=== PATIENT | female | born 1980 | race Caucasian/White ===

== ENCOUNTER 2022-10-14 08:18 | Emergency (ER) | payer OTHER ==
[~2022-10-14] VITALS: Ht 154.9 cm; Wt 63.5 kg
--- NOTE | 2022-10-14 08:30 | NUR ---
Patient ambulated into room #4A with c/o right neck and arm pain. Informed of plan of care, MD at bedside for exam. No s/s of any distress noted at this time, will continue to monitor.
--- NOTE | 2022-10-14 08:43 | NUR ---
MD at bedside taslking with patient.
[2022-10-14] MEDS ORDERED: CAPS60CR4 TP (09:05)
[2022-10-14] MEDS ORDERED: CYCL5TAB PO (09:05)
[2022-10-14] MEDS ORDERED: DOXY25TA60 PO (09:05)
[2022-10-14] MEDS ORDERED: ACETAMINOPHEN ES 500 MG TABLET ONE (09:14)
[2022-10-14] MEDS ORDERED: ACETAMINOPHEN ES 500 MG TABLET PO ONE (09:15)
--- NOTE | 2022-10-14 09:16 | NUR ---
Patient medicated as per order, remains stable for discharge. ACI given states understanding.
[2022-10-14 09:18] VITALS: BP 94/55
== END 2022-10-14 09:19 | disposition home or self-care (01) ==
LOC: ER 08:18
DX: O26.892 Other specified pregnancy related conditions, second trimester (principal); M54.6 Pain in thoracic spine; M62.838 Other muscle spasm; Z79.899 Other long term (current) drug therapy; Z3A.15 15 weeks gestation of pregnancy
CPT/HCPCS: A4663; A9150